=== PATIENT | female | born 1960 | race Caucasian/White ===

== ENCOUNTER → 2020-01-12 | Outpatient (CLI) | payer OTHER ==
[~2020-01-12] MED LIST: ASPIR-LOW81 MG PO; ASPIRIN 81M81 MG/TA2 PO; ATIVAN 0.50.5 MG/TAB PO; CARAFATE 1GM1 G PO; CARDI-OMEGA1000 MG PO; CELEXA10 MG PO; CIPRO 500MG TA500 MG PO; MULTIPLE VITAMI1 CAP PO; NITROSTAT0.4 MG SL; NORCO 325 MG-51 TAB PO; NORCO 325 MG-7.1 TAB PO; PHENERGAN 25 TA25 MG PO; PHENERGAN25 MG RC; PRILOSEC 20MG20 MG PO; REGLAN 10MG10 MG/TAB PO; VITAMINS; VYTORIN; ZOCOR 40MG40 MG PO; ZOCOR40 MG PO
== END ==
LOC: ZCOL.LAB 15:45
DX: Z20.828 Contact with and (suspected) exposure to other viral communicable diseases (principal)

== ENCOUNTER 2023-05-05 17:11 | Emergency (ER) | payer OTHER ==
[~2023-05-05] VITALS: Ht 165.1 cm; Wt 81.8 kg
[~2023-05-05 17:11] MED LIST changes: +AMOXICILLIN 8751 TAB PO; +AMOXICILLIN/CLA1 TA1 PO; +CELEXA40 MG PO; +CEPHALEXIN500 M1 PO; +LIPITOR20 MG PO; +WELLBUTRIN SR150 M1 PO; +ZOFRAN ODT4 MG PO
[2023-05-05 17:14] VITALS: TEMP 96.7
[2023-05-05 18:09] VITALS: BP 135/86; PULSE 71
== END 2023-05-05 18:09 | disposition home or self-care (01) ==
LOC: COL.ER 17:11
DX: S60.212A Contusion of left wrist, initial encounter (principal); F17.210 Nicotine dependence, cigarettes, uncomplicated; Z88.6 Allergy status to analgesic agent; W18.30XA Fall on same level, unspecified, initial encounter